=== PATIENT | male | born 1975 | race African-American/Black ===

== ENCOUNTER 2016-10-20 14:08 | Outpatient (RCR) | payer OTHER | END 2016-12-15 15:29 | LOC: WSOH 14:08 | DX: S46.811D Strain of other muscles, fascia and tendons at shoulder and upper arm level, right arm, subsequent encounter (principal); R20.8 Other disturbances of skin sensation; X50.3XXA Overexertion from repetitive movements, initial encounter; Y99.0 Civilian activity done for income or pay ==

== ENCOUNTER → 2016-10-20 | Outpatient (REF) ==
[~2016-10-20] MED LIST: SILVADENE 400G400 GM TP
== END ==
LOC: WSOH 14:09
DX: Z02.89 Encounter for other administrative examinations (principal)